=== PATIENT | female | born 2000 | race Caucasian/White ===

== ENCOUNTER 2020-07-26 02:20 | Emergency (ER) | payer OTHER ==
[~2020-07-26] VITALS: Ht 165.1 cm; Wt 56.7 kg
[2020-07-26 02:20] VITALS: BP 112/75
[2020-07-26] MEDS ORDERED: LIDOCAINE HCL/MPF 1% 30 ML VIAL IJ ONE (02:41)
--- NOTE | 2020-07-26 03:00 | NUR ---
pt refused sutures.
--- NOTE | 2020-07-26 03:05 | NUR ---
applied steristrips and dermabond on left eye.
--- NOTE | 2020-07-26 03:05 | NUR ---
Patient discharged to home in stable condition. Written and verbal after care instructions given. Patient verbalizes understanding of instruction.
== END 2020-07-26 03:08 | disposition home or self-care (01) ==
LOC: ER 02:23
DX: S01.112A Laceration without foreign body of left eyelid and periocular area, initial encounter (principal); W22.8XXA Striking against or struck by other objects, initial encounter; Y93.89 Activity, other specified; Y92.091 Bathroom in other non-institutional residence as the place of occurrence of the external cause; Y99.8 Other external cause status
CPT/HCPCS: J3490